=== PATIENT | female | born 1965 | race Caucasian/White ===

== ENCOUNTER 2017-10-01 21:13 | Emergency (ER) | payer OTHER ==
[~2017-10-01] VITALS: Ht 167.6 cm; Wt 52.2 kg
--- NOTE | 2017-10-01 21:21 | ED.ADGEN ---
Past History Past Medical History: Kidney Stones Adult General Chief Complaint Chief Complaint ".. I having another kidney stone.. on the Rt... and it feel s low now... I had one 8 yrs ago... ".." I ve been putting up with it for about 2 days.. some nausea. 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 Patient currently rating her pain as 8 out of 10. Nothing seems to make it better.. Pain is just like when she had a kidney stone 8 years ago. No history of bad food, change in bowel hx, or hx of trauma. 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 ,. No history of travel. No history immunosuppression. Patient normally follows a primary at [facility]. UTI- remote- many years go. Review of Systems Review of Systems Constitutional: Denies fever or chills [] Eyes: Denies change in visual acuity, redness, or eye pain [] HENT: Denies nasal congestion or sore throat [] Respiratory: Denies cough or shortness of breath [] Cardiovascular: No additional information not addressed in HPI [] GI: History of abdominal pain, nausea. Denies, vomiting, bloody stools or diarrhea []right flank pain : Denies dysuria or hematuria [] Musculoskeletal: Denies back pain or joint pain [] Integument: Denies rash or skin lesions [] Neurologic: Denies headache, focal weakness or sensory changes [] Endocrine: Denies polyuria or polydipsia [] All other systems were reviewed and found to be within normal limits, except as documented in this note. Family History Family History Noncontributory Current Medications Current Medications Current Medications Medications (Trade) Dose Ordered Sig/Shabbir Start Time Stop Time Status Last Admin Dose Admin Ketorolac Tromethamine (Toradol) 30 mg STK-MED ONCE 10/01/17 22:11 10/01/17 22:12 DC Lactated Ringer's 1,000 ml @ 1,000 mls/hr Q1H 10/01/17 22:30 10/01/17 23:29 DC 10/01/17 22:25 1,000 MLS/HR Levofloxacin (Levaquin) 500 mg STK-MED ONCE 10/01/17 22:11 10/01/17 22:12 DC Morphine Sulfate (Morphine 10mg Syringe) 10 mg STK-MED ONCE 10/01/17 22:11 10/01/17 22:12 DC Ondansetron HCl (Zofran Odt) 4 mg STK-MED ONCE 10/01/17 22:11 10/01/17 22:12 DC Tamsulosin HCl (Flomax) 0.4 mg STK-MED ONCE 10/01/17 22:11 10/01/17 22:12 DC Allergies Allergies Allergies Coded Allergies Type Severity Reaction Last Updated Verified No Known Drug Allergies 10/01/17 No No known drug allergies Physical Exam Physical Exam Constitutional: Well developed, well nourished, in acute distress, non-toxic appearance. [] HENT: Normocephalic, atraumatic, bilateral external ears normal, oropharynx moist, no oral exudates, nose normal. [] Eyes: PERRLA, EOMI, conjunctiva normal, no discharge. [] Neck: Normal range of motion, no tenderness, supple, no stridor. [] Cardiovascular: Tachycardia Heart rate regular rhythm, no murmur [] Lungs & Thorax: Bilateral breath sounds clear to auscultation [] Abdomen: Bowel sounds decreased, soft, right flank tenderness, no masses, no pulsatile masses. [Distended] Old surgery scar. Skin: Warm, dry, no erythema, no rash. [] Back: No tenderness, has right CVA tenderness. [] Extremities: No tenderness, no cyanosis, no clubbing, ROM intact, no edema. [] No psoas Neurologic: Alert and oriented X 3, normal motor function, normal sensory function, no focal deficits noted. [] Psychologic: Affect anxious, judgement normal, mood normal. [] Current Patient Data Vital Signs Vital Signs Date Time Temp Pulse Resp B/P (MAP) Pulse Ox O2 Delivery O2 Flow Rate FiO2 10/01/17 23:36 85 17 124/69 (87) 99 Room Air 10/01/17 21:38 98.4 Lab Results Laboratory Tests Test 10/01/17 21:32 White Blood Count 8.6 x10^3/uL (4.0-11.0) Red Blood Count 4.51 x10^6/uL (3.50-5.40) Hemoglobin 13.4 g/dL (12.0-15.5) Hematocrit 39.7 % (36.0-47.0) Mean Corpuscular Volume 88 fL (79-100) Mean Corpuscular Hemoglobin 30 pg (25-35) Mean Corpuscular Hemoglobin Concent 34 g/dL (31-37) Red Cell Distribution Width 12.8 % (11.5-14.5) Platelet Count 213 x10^3/uL (140-400) Neutrophils (%) (Auto) 64 % (31-73) Lymphocytes (%) (Auto) 26 % (24-48) Monocytes (%) (Auto) 7 % (0-9) Eosinophils (%) (Auto) 2 % (0-3) Basophils (%) (Auto) 1 % (0-3) Neutrophils # (Auto) 5.4 x10^3uL (1.8-7.7) Lymphocytes # (Auto) 2.2 x10^3/uL (1.0-4.8) Monocytes # (Auto) 0.6 x10^3/uL (0.0-1.1) Eosinophils # (Auto) 0.2 x10^3/uL (0.0-0.7) Basophils # (Auto) 0.1 x10^3/uL (0.0-0.2) Platelet Estimate Adequate (ADEQUATE) Platelet Clumps, EDTA Present Large Platelets Occ Prothrombin Time 10.3 SEC (9.4-11.4) Prothrombin Time INR 1.0 (0.9-1.1) PTT 21 SEC (23-33) L Urine Collection Type Unknown Urine Color Straw Urine Clarity Hazy Urine pH 6.0 Urine Specific [place] <=1.005 Urine Protein Neg (NEG-TRACE) Urine Glucose (UA) Neg mg/dL (NEG) Urine Ketones (Stick) Neg mg/dL (NEG) Urine Blood Neg (NEG) Urine Nitrite Neg (NEG) Urine Bilirubin Neg (NEG) Urine Urobilinogen Dipstick 0.2 mg/dL (0.2 mg/dL) Urine Leukocyte Esterase Small (NEG) Urine RBC Occ /HPF (0-2) Urine WBC 5-10 /HPF (0-4) Urine Squamous Epithelial Cells Occ /LPF Urine Bacteria Mod /HPF (0-FEW) EKG EKG [] Radiology/Procedures Radiology/Procedures My interpretation of abdomen film shows no acute cardiopulmonary findings. Does have a very small calcified nodes. Somewhat hyperexpanded. No free air in the diaphragm. Increased stool in the colon. Does have clips from previous gallbladder surgery. There is a stone visible in bladder. CT of abdomen shows dilation of urethral but no obvious urethral stone. No obvious inflammatory findings and appendix area. Does have kidney stones in kidney. See formal report when available. Course & Med Decision Making Course & Med Decision Making Pertinent Labs and Imaging studies reviewed. (See chart for details). Patient declines admission at this time. Push vitamin C drinks. Take Levaquin 500 mg a day for 5 days. Take Flomax 0.4 mg daily while having pain. Stone passed attempt to save it. For marked pain take Vicoprofen up 4 times a day. Take Zofran 8 mg 4 times a day for nausea and vomiting. Follow-up primary care. Follow-up cultures. Follow-up with urology. Return if any concerns. [] Final Impression Final Impression 1. Abdomen pain[] 2. Right flank pain 3. Constipation 4. Urinary tract infection. Dragon Disclaimer Dragon Disclaimer This electronic medical record was generated, in whole or in part, using a voice recognition dictation system. ROBER AMIN MD October 01, 2017 21:21
[2017-10-01] MEDS ORDERED: MORPHINE SULFATE 10 MG/ML SYRINGE. ONE (22:11)
[2017-10-01] MEDS ORDERED: levoFLOXacin 500 MG TABLET ONE (22:11)
[2017-10-01] MEDS ORDERED: TAMSULOSIN 0.4 MG CAP.ER.24H. PO ONE ×2 (22:11→22:30)
[2017-10-01] MEDS ORDERED: ONDANSETRON ODT 4 MG TAB.RAPDIS ONE (22:11)
[2017-10-01] MEDS ORDERED: KETOROLAC 30 MG/ML VIAL. ONE (22:11)
[2017-10-01 22:27] LABS: BASO # 0.1 x10^3/uL (0.0-0.2); BASO % 1 % (0-3); EOS # 0.2 x10^3/uL (0.0-0.7); EOS % 2 % (0-3); HEMATOCRIT 39.7 % (36.0-47.0); HEMOGLOBIN 13.4 g/dL (12.0-15.5); LYMPH # 2.2 x10^3/uL (1.0-4.8); LYMPH % 26 % (24-48); MEAN CORPUSCULAR HEMOGLOBIN 30 pg (25-35); MEAN CORPUSCULAR HGB CONC 34 g/dL (31-37); MEAN CORPUSCULAR VOLUME 88 fL (79-100); MONO # 0.6 x10^3/uL (0.0-1.1); MONO % 7 % (0-9); NEUT # 5.4 x10^3uL (1.8-7.7); NEUT % 64 % (31-73); PLATELET COUNT 213 x10^3/uL (140-400); RED BLOOD COUNT 4.51 x10^6/uL (3.50-5.40); RED CELL DISTRIBUTION WIDTH 12.8 % (11.5-14.5); WHITE BLOOD COUNT 8.6 x10^3/uL (4.0-11.0)
[2017-10-01 22:29] LABS: BILIRUBIN,URINE NEG (NEG); CLARITY,URINE HAZY; COLOR,URINE STRAW; GLUCOSE,URINE NEG (NEG)
[2017-10-01 22:30] LABS: BACTERIA,URINE MOD /HPF (0-FEW); NITRITE,URINE NEG (NEG); RBC,URINE OCC /HPF (0-2); SQUAMOUS EPITHELIAL CELL,UR OCC /LPF; UROBILINOGEN,URINE 0.2 mg/dL (0.2 mg/dL)
[2017-10-01] MEDS ORDERED: ONDANSETRON ODT 4 MG TAB.RAPDIS PO ONE (22:30)
[2017-10-01] MEDS ORDERED: KETOROLAC 30 MG/ML VIAL. IV ONE (22:30)
[2017-10-01] MEDS ORDERED: MORPHINE SULFATE 10 MG/ML SYRINGE. SQ ONE (22:30)
[2017-10-01] MEDS ORDERED: levoFLOXacin 500 MG TABLET PO ONE (22:30)
[2017-10-01] MEDS ORDERED: IV RINGERS SOLUTION,LACTATED 1,000 ML IV SCH (22:30)
[2017-10-01 23:04] LABS: PLATELET CLUMP PRESENT; PLT ESTIMATE ADEQUATE (ADEQUATE)
--- NOTE | 2017-10-01 23:14 | RAD ---
CT scan of the abdomen and pelvis without contrast 10/01/2017 CLINICAL HISTORY: Right flank pain. TECHNIQUE: Unenhanced, contiguous, 3 mm axial sections were obtained through the abdomen and pelvis. One or more of the following individualized dose reduction techniques were utilized for this study: 1. Automated exposure control. 2. Adjustment of the mA and/or kV according to patient size. 3. Use of iterative reconstruction technique. Findings: Images through the lung bases are within normal limits. The liver, spleen, pancreas, and adrenal glands are within normal limits. Multiple nonobstructing calculi are seen scattered throughout both kidneys, left greater than right. These measure 2 to 4 mm in size. The right ureter is mildly dilated within its proximal and midportion. The distal right ureter is difficult to follow into the pelvis. No ureteral calculus is definitely seen. Surgical clips are seen within the gallbladder fossa consistent with a cholecystectomy. The abdominal aorta tapers normally. No free fluid or free air is seen within the abdomen. There is no evidence of bowel obstruction. A moderate amount of stool is seen throughout the colon. The appendix is not visualized. No inflammatory changes are seen surrounding the cecum. Images through the pelvis demonstrate the urinary bladder distended with urine. Calcifications are seen within the pelvis consistent with phleboliths. Prominent air and fluid filled small bowel loops extend into the inferior pelvis without definite evidence of bowel obstruction. Degenerative changes are seen involving lower lumbar spine. IMPRESSION: Mild dilatation of the visualized portions of the right ureter is seen. No ureteral calculus is noted. These findings could be seen with recently relieved obstruction of the right collecting system due to passage of a distal ureteral calculus. Clinical correlation is recommended. Electronically signed by: Tank Limon MD (10/01/2017 11:10 PM) [facility]
[2017-10-01] MEDS ORDERED: TAMS0.4C97 PO (23:32)
[2017-10-01] MEDS ORDERED: HYDR-79 PO (23:32)
[2017-10-01] MEDS ORDERED: ONDA8TAB12 PO (23:32)
[2017-10-01] MEDS ORDERED: LEVO500T59 PO (23:35)
[2017-10-01 23:36] VITALS: BP 124/69
--- NOTE | 2017-10-01 23:39 | RAD ---
Acute abdominal series to include a PA chest radiograph 10/01/2017 Clinical History: Lower abdominal pain which radiates to the right side. A PA digital radiograph of the chest was obtained. Supine and erect AP digital radiographs of the abdomen/pelvis were obtained. No previous studies are available for comparison. The cardiac and mediastinal silhouettes are within normal limits in size and configuration. No pulmonary infiltrate is seen. No pleural effusion or pneumothorax is noted. Surgical clips are seen within the right upper quadrant abdomen consistent with a cholecystectomy. A moderate amount stool seen throughout the colon. The abdominal bowel gas pattern is nonobstructive. Calcifications are seen within the pelvis consistent with phleboliths. Air and stool throughout the colon obscures evaluation renal shadows. The osseous structures are grossly intact. Impression: Nonobstructive bowel gas pattern. Electronically signed by: Tank Limon MD (10/01/2017 11:36 PM) [facility]
== END 2017-10-01 23:56 | disposition home or self-care (01) ==
LOC: ER 21:13
DX: N39.0 Urinary tract infection, site not specified (principal); K59.00 Constipation, unspecified; Z87.442 Personal history of urinary calculi
CPT/HCPCS: 36415; 74022; 74176; 81001; 85025; 85610; 85730; 87086; 87186; 96372; 96374; 99285; J1885; J2270; J7120; Q0162